=== PATIENT | male | born 1965 | race Two or more races ===

== ENCOUNTER 2018-05-23 16:33 | Emergency (ER) | payer SELFPAY ==
[~2018-05-23] VITALS: Ht 175.3 cm; Wt 72.6 kg
[2018-05-23 17:41] LABS: Basophils # (auto) 0.1 uL; Basophils % (auto) 0.9 % (0.0-2.0); Eosinophils # (auto) 0.2 uL; Eosinophils % (auto) 2.6 % (0.0-7.0); Hematocrit 47.8 % (41.0-53.0); Hemoglobin 16.6 g/dL (13.5-17.5); Lymphocytes # (auto) 2.2 uL; Lymphocytes % (auto) 26.5 % (10.0-50.0); Mean Corpuscular Hemoglobin 33.4 pg (28.0-32.0); Mean Corpuscular Hgb Conc. 34.7 g/dL (32.0-36.0); Mean Corpuscular Volume 96.2 fL (80.0-100.0); Monocytes # (auto) 0.7 uL; Monocytes % (auto) 8.7 % (0.0-12.0); Neutrophils # (auto) 5.2 uL; Neutrophils % (auto) 61.3 % (37.0-80.0); Nucleated Red Blood Cells % 0.2 %; Platelet Count (auto) 219 10^3/uL (140-450); Red Blood Cells 4.97 10^6/uL (4.5-5.90); Red Cell Distribution Width 12.7 % (11.8-14.3); White Blood Cell 8.4 10^3/uL (4.4-10.8)
[2018-05-23 17:51] LABS: Albumin 4.1 g/dL (3.4-5.0); Anion Gap 4 (5-15); Blood Urea Nitrogen 10 mg/dL (7-18); Calcium 8.8 mg/dL (8.5-10.1); Carbon Dioxide 29 mmol/L (21-32); Chloride 107 mmol/L (98-107); Glucose 84 mg/dL (74-106); Magnesium 2.4 mg/dL (1.6-2.6); Sodium 140 mmol/L (136-145)
[2018-05-23 17:56] LABS: Alanine Aminotransferase 44 U/L (16-61); Alkaline Phosphatase 127 U/L (45-117); Aspartate Aminotransferase 17 U/L (15-37); BUN/Creatinine Ratio 10.4; Bilirubin, Total 0.3 mg/dL (0.2-1.0); GFR African American > 60 mL/min; GFR Non-African American > 60 mL/min; Total Protein 7.4 g/dL (6.4-8.2)
[2018-05-23] MEDS ORDERED: MORPHINE SULFATE 10 MG/ML INJ 1ML SDV IV ONE (19:30)
[2018-05-23] MEDS ORDERED: ONDANSETRON HCL 4 MG/2 ML VIAL IV ONE (19:30)
[2018-05-23] MEDS ORDERED: KETOROLAC TROMETH 30 MG/ML 1ML VIAL IV ONE (20:45)
[2018-05-23 21:54] VITALS: BP 124/81
== END 2018-05-23 22:38 | disposition home or self-care (01) ==
LOC: ER 16:36
DX: J01.90 Acute sinusitis, unspecified (principal); I25.2 Old myocardial infarction; Z98.61 Coronary angioplasty status
CPT/HCPCS: 36415; 70450; 80053; 83735; 84484; 85025; 93005; 96374; 96375; 99284; J1885; J2270; J2405

== ENCOUNTER 2019-06-19 11:38 | Inpatient (IN) | payer OTHER ==
[~2019-06-19] VITALS: Ht 175.3 cm; Wt 74.6 kg
[2019-06-19] MEDS ORDERED: ONDANSETRON HCL 4 MG/2 ML VIAL IV ONE (12:15)
[2019-06-19] MEDS ORDERED: MORPHINE SULFATE 4 MG/ML SYR/VIAL IV ONE (12:15)
[2019-06-19] MEDS ORDERED: NITROGLYCERIN 0.4 MG SL TAB SL ONE (12:15)
[2019-06-19] MEDS ORDERED: ASPirin 81 mg TAB PO ONE (12:15)
[2019-06-19 12:16] LABS: Basophils # (auto) 0.1 uL; Basophils % (auto) 1.2 % (0.0-2.0); Eosinophils # (auto) 0.2 uL; Eosinophils % (auto) 3.3 % (0.0-7.0); Hematocrit 46.8 % (41.0-53.0); Hemoglobin 15.9 g/dL (13.5-17.5); Lymphocytes # (auto) 1.3 uL; Lymphocytes % (auto) 25.8 % (10.0-50.0); Mean Corpuscular Hemoglobin 32.3 pg (28.0-32.0); Mean Corpuscular Hgb Conc. 33.9 g/dL (32.0-36.0); Mean Corpuscular Volume 95.4 fL (80.0-100.0); Monocytes # (auto) 0.5 uL; Monocytes % (auto) 10.4 % (0.0-12.0); Neutrophils % (auto) 59.3 % (37.0-80.0); Nucleated Red Blood Cells % 0.1 %; Platelet Count (auto) 212 10^3/uL (140-450); Red Blood Cells 4.91 10^6/uL (4.5-5.90); Red Cell Distribution Width 12.7 % (11.8-14.3); White Blood Cell 5.1 10^3/uL (4.4-10.8)
[2019-06-19 12:39] LABS: Alanine Aminotransferase 21 U/L (16-61); Albumin 3.7 g/dL (3.4-5.0); Anion Gap 5 (5-15); Aspartate Aminotransferase 15 U/L (15-37); Blood Urea Nitrogen 11 mg/dL (7-18); Carbon Dioxide 27 mmol/L (21-32); Chloride 107 mmol/L (98-107); GFR African American 90 mL/min; GFR Non-African American 74 mL/min; Glucose 97 mg/dL (74-106); Potassium 4.2 mmol/L (3.5-5.1); Sodium 139 mmol/L (136-145)
[2019-06-19 12:44] LABS: Alkaline Phosphatase 127 U/L (45-117); Bilirubin, Total 0.3 mg/dL (0.2-1.0); Total Protein 7.2 g/dL (6.4-8.2)
[2019-06-19] MEDS ORDERED: NITROGLYCERIN 0.4 MG SL TAB SL PRN (15:45)
[2019-06-19] MEDS ORDERED: PROMETHAZINE HCL 25 MG/ML 1ML IV PRN (15:45)
[2019-06-19] MEDS ORDERED: ACETAMINOPHEN 500 MG TAB PO PRN (15:45)
[2019-06-19] MEDS ORDERED: NALBUPHINE HCL 10 MG/1ml INJECTION IV PRN (15:45)
[2019-06-19] MEDS ORDERED: MORPHINE SULF INJ 2 MG/ML SYRINGE 1ML IV PRN (15:45)
[2019-06-19] MEDS: SODIUM CHLORIDE 0.9% 1,000 ML IV SCH (15:48)
[2019-06-19 20:10] VITALS: BP 135/73
[2019-06-19] MEDS: MORPHINE SULF INJ 2 MG/ML SYRINGE 1ML IV PRN (21:10)
[2019-06-19] MEDS: ATORVASTATIN 20 MG TAB PO SCH (21:10)
[2019-06-19 22:00] VITALS: BP 135/73
[2019-06-19] MEDS: TEMAZEPAM 15 MG CAP PO PRN (23:30)
[2019-06-20] MEDS ORDERED: INFLUENZA QUAD 2019-2020 0.5ml SYRG IM ONE (02:15)
[2019-06-20] MEDS: SODIUM CHLORIDE 0.9% 1,000 ML IV SCH ×2 (04:40→17:28)
[2019-06-20 05:05] VITALS: BP 118/60
[2019-06-20] MEDS: MORPHINE SULF INJ 2 MG/ML SYRINGE 1ML IV PRN ×5 (05:08→23:31)
[2019-06-20 05:59] LABS: Cholesterol 168 mg/dL (< 200); HDL Cholesterol 35 mg/dL (40-59); LDL Cholesterol 113 mg/dL (< 100); Triglycerides 130 mg/dL (< 150)
[2019-06-20 09:00] VITALS: BP 124/72
[2019-06-20] MEDS: ENOXAPARIN SOD 40 MG/0.4 ML SYRINGE SC SCH (09:01)
[2019-06-20] MEDS: ASPirin 81 mg TAB PO SCH (09:02)
[2019-06-20 17:06] VITALS: BP 112/66
[2019-06-20] MEDS: ATORVASTATIN 20 MG TAB PO SCH (21:24)
[2019-06-20 21:46] VITALS: BP 116/78
[2019-06-21] VITALS (7 sets, daily range): BP systolic 121–134; BP diastolic 68–79
[2019-06-21] MEDS: SODIUM CHLORIDE 0.9% 1,000 ML IV SCH (01:25)
[2019-06-21] MEDS: MORPHINE SULF INJ 2 MG/ML SYRINGE 1ML IV PRN ×2 (04:05→11:52)
[2019-06-21] MEDS: traMADol HCL 50 MG TAB PO PRN ×3 (08:21→22:18)
[2019-06-21] MEDS ORDERED: ADENOSINE 62 MG in GIVE UN-DILUTED 0 ML IV STA (08:36)
[2019-06-21] MEDS: ENOXAPARIN SOD 40 MG/0.4 ML SYRINGE SC SCH (11:52)
[2019-06-21] MEDS: ASPirin 81 mg TAB PO SCH (11:52)
[2019-06-21] MEDS ORDERED: predniSONE 20 MG TAB PO ONE (13:15)
[2019-06-21] MEDS ORDERED: ALBUTEROL SULF 2.5 MG/0.5ML(0.5%) NEB SOLN NEB SCH (13:15)
[2019-06-21] MEDS: ALBUTEROL SULF 2.5 MG/0.5ML(0.5%) NEB SOLN NEB SCH (18:56)
[2019-06-21] MEDS: IPRATROPIUM BROM 0.5 MG/2.5ML INH SOL NEB SCH (18:56)
[2019-06-21] MEDS: ATORVASTATIN 20 MG TAB PO SCH (22:18)
[2019-06-22 05:00] VITALS: BP 134/81
[2019-06-22] MEDS: traMADol HCL 50 MG TAB PO PRN ×4 (05:01→23:29)
[2019-06-22] MEDS: ALBUTEROL SULF 2.5 MG/0.5ML(0.5%) NEB SOLN NEB SCH ×3 (06:45→20:11)
[2019-06-22] MEDS: IPRATROPIUM BROM 0.5 MG/2.5ML INH SOL NEB SCH ×3 (06:45→20:11)
[2019-06-22 08:38] VITALS: BP 119/60
[2019-06-22] MEDS: predniSONE 20 MG TAB PO SCH (10:32)
[2019-06-22] MEDS: ASPirin 81 mg TAB PO SCH (10:32)
[2019-06-22] MEDS: ENOXAPARIN SOD 40 MG/0.4 ML SYRINGE SC SCH (10:32)
[2019-06-22 13:00] VITALS: BP 115/69
[2019-06-22 17:01] VITALS: BP 123/73
[2019-06-22] MEDS: LACTULOSE 20Gm/30ML SOLN PO PRN (21:08)
[2019-06-22] MEDS: ATORVASTATIN 20 MG TAB PO SCH (21:08)
[2019-06-22] MEDS: TEMAZEPAM 15 MG CAP PO PRN ×2 (21:09→23:30)
[2019-06-22 21:27] LABS: Urine Bacteria NONE SEEN /hpf (None Seen); Urine Blood Negative /uL (Negative); Urine Specific Gravity 1.019 (1.001-1.035); Urine WBC 1 /hpf (0 - 3)
[2019-06-22 21:28] VITALS: BP 103/62
[2019-06-22 22:00] VITALS: BP 125/76
[2019-06-22] MEDS: SODIUM CHLORIDE 0.9% 1,000 ML IV SCH (23:56)
[2019-06-23 05:00] VITALS: BP 124/68
[2019-06-23] MEDS: LACTULOSE 20Gm/30ML SOLN PO PRN (05:23)
[2019-06-23] MEDS: traMADol HCL 50 MG TAB PO PRN ×2 (05:31→13:25)
[2019-06-23 07:01] LABS: Basophils # (auto) 0.1 uL; Basophils % (auto) 0.8 % (0.0-2.0); Eosinophils # (auto) 0.1 uL; Eosinophils % (auto) 1.4 % (0.0-7.0); Hematocrit 44.1 % (41.0-53.0); Hemoglobin 15.2 g/dL (13.5-17.5); Lymphocytes # (auto) 1.7 uL; Lymphocytes % (auto) 26.7 % (10.0-50.0); Mean Corpuscular Hemoglobin 32.9 pg (28.0-32.0); Mean Corpuscular Hgb Conc. 34.5 g/dL (32.0-36.0); Mean Corpuscular Volume 95.2 fL (80.0-100.0); Monocytes # (auto) 0.6 uL; Monocytes % (auto) 9.4 % (0.0-12.0); Neutrophils # (auto) 3.9 uL; Neutrophils % (auto) 61.7 % (37.0-80.0); Nucleated Red Blood Cells % 0.1 %; Platelet Count (auto) 191 10^3/uL (140-450); Red Blood Cells 4.63 10^6/uL (4.5-5.90); Red Cell Distribution Width 12.6 % (11.8-14.3); White Blood Cell 6.3 10^3/uL (4.4-10.8)
[2019-06-23] MEDS: IPRATROPIUM BROM 0.5 MG/2.5ML INH SOL NEB SCH ×2 (07:06→11:54)
[2019-06-23] MEDS: ALBUTEROL SULF 2.5 MG/0.5ML(0.5%) NEB SOLN NEB SCH ×2 (07:06→11:54)
[2019-06-23 07:16] LABS: Calcium 9.1 mg/dL (8.5-10.1); Potassium 4.1 mmol/L (3.5-5.1)
[2019-06-23 07:18] LABS: BUN/Creatinine Ratio 12.5
[2019-06-23 07:20] LABS: INR 0.95 (0.9-1.15); Partial Thromboplastin Time 26.4 sec (23.64-32.05)
[2019-06-23 09:00] VITALS: BP 133/70
[2019-06-23] MEDS ORDERED: LIDOCAINE 2%HCL (LOCAL ANESTH.) INJ 20ML MDV ONE (09:55)
[2019-06-23] MEDS ORDERED: IODIXANOL 320MG/ML 100ML BTL IV ONE (09:55)
[2019-06-23] MEDS: ENOXAPARIN SOD 40 MG/0.4 ML SYRINGE SC SCH (10:00)
[2019-06-23] MEDS: predniSONE 20 MG TAB PO SCH (10:00)
[2019-06-23] MEDS: ASPirin 81 mg TAB PO SCH (10:00)
[2019-06-23] MEDS ORDERED: MIDAZOLAM HCL 1MG/1ML-2 ML VIAL ONE (10:08)
[2019-06-23] MEDS ORDERED: fentaNYL CITRATE 100 MCG/2 ML VL ONE (10:08)
[2019-06-23] MEDS ORDERED: ANGIOMAX 250 MG VIAL IV ONE (10:08)
[2019-06-23] MEDS ORDERED: SODIUM CHL 0.9% 0 ML ONE (10:08)
[2019-06-23] MEDS ORDERED: IOHEXOL 350 MG/ML 100ML IJ ONE (10:08)
[2019-06-23] MEDS ORDERED: HEPARIN SODIUM (PORCINE) 5000 UNITS/ML 1ML VIAL ONE (10:13)
[2019-06-23] MEDS ORDERED: VERAPAMIL 2.5MG/ML INJ 2ML VIAL IV ONE (10:13)
[2019-06-23] MEDS ORDERED: SODIUM CHL 0.9% 500 ML IV ONE (11:00)
[2019-06-23] MEDS ORDERED: ASPI81CH43 PO (12:21)
[2019-06-23] MEDS ORDERED: ALB5IS NEB (12:21)
[2019-06-23] MEDS ORDERED: ATOR20TA50 PO (12:21)
[2019-06-23 13:00] VITALS: BP 105/69
[2019-06-23] MEDS: SODIUM CHLORIDE 0.9% 1,000 ML IV SCH (13:21)
[2019-06-23 17:00] VITALS: BP 111/63
[2019-06-23 18:12] VITALS: BP 105/69
== END 2019-06-23 18:50 | disposition home or self-care (01) | DRG 287 ==
LOC: ER 11:38 → TELE 11:39 → TELE-WESTW 20:10
PROVIDERS: ADMIT Internal Medicine; ATTEND Internal Medicine Nephrology
PROC: 4A023N7 Measurement of Cardiac Sampling and Pressure, Left Heart, Percutaneous Approach (ICD-10-PCS; principal; 2019-06-23)
PROC: B2111ZZ Fluoroscopy of Multiple Coronary Arteries using Low Osmolar Contrast (ICD-10-PCS; 2019-06-23)
PROC: B2151ZZ Fluoroscopy of Left Heart using Low Osmolar Contrast (ICD-10-PCS; 2019-06-23)
DX: R07.89 Other chest pain (principal); I24.9 Acute ischemic heart disease, unspecified; F41.9 Anxiety disorder, unspecified; E78.5 Hyperlipidemia, unspecified; R00.1 Bradycardia, unspecified; F17.210 Nicotine dependence, cigarettes, uncomplicated; Z82.49 Family history of ischemic heart disease and other diseases of the circulatory system; Z83.3 Family history of diabetes mellitus
CPT/HCPCS: 36415; 71045; 71250; 78452; 80048; 80053; 80061; 81001; 82550; 84443; 84484; 85025; 85379; 85610; 85652; 85730; 86141; 86850; 86900; 86901; 93005; 93017; 93306; 94640; 96361; 96374; 96375; 96376; 99152; G0378; J0153; J2250; J2405; Q9967

== ENCOUNTER 2020-02-15 12:15 | Emergency (ER) | payer BC ==
[~2020-02-15] VITALS: Ht 175.3 cm; Wt 72.6 kg
[~2020-02-15 12:15] MED LIST: ALB5IS NEB; ASPI81CH43 PO; ATOR20TA50 PO
[2020-02-15 12:37] VITALS: BP 116/86
[2020-02-15] MEDS ORDERED: KETOROLAC TROMETH 60MG/2ML VIAL IM ONE (14:45)
== END 2020-02-15 14:44 | disposition home or self-care (01) ==
LOC: ER 12:15
DX: R51.9 Headache, unspecified (principal); R42 Dizziness and giddiness; R20.0 Anesthesia of skin; F17.210 Nicotine dependence, cigarettes, uncomplicated; I25.2 Old myocardial infarction; Z98.61 Coronary angioplasty status
CPT/HCPCS: 70450; 99284; J7030

== ENCOUNTER 2020-06-02 18:29 | Emergency (ER) | payer BC ==
[~2020-06-02] VITALS: Ht 175.3 cm; Wt 77.1 kg
[2020-06-02 18:32] VITALS: BP 139/85
[2020-06-02 19:41] LABS: Basophils # (auto) 0.1 10 ^3/uL (0-0.2); Eosinophils # (auto) 0.3 10 ^3/uL (0-0.8); Eosinophils % (auto) 5.2 % (0.0-7.0); Monocytes # (auto) 0.7 10 ^3/uL (0-1.3); White Blood Cell 5.2 10^3/uL (4.4-10.8)
[2020-06-02 19:43] LABS: Basophils % (auto) 1.2 % (0.0-2.0); Hematocrit 43.7 % (41.0-53.0); Lymphocytes # (auto) 1.6 10 ^3/uL (0.4-5.4); Lymphocytes % (auto) 31.3 % (10.0-50.0); Mean Corpuscular Hemoglobin 33.1 pg (28.0-32.0); Mean Corpuscular Hgb Conc. 34.4 g/dL (32.0-36.0); Mean Corpuscular Volume 96.1 fL (80.0-100.0); Monocytes % (auto) 13.7 % (0.0-12.0); Neutrophils # (auto) 2.5 10 ^3/uL (1.6-8.6); Neutrophils % (auto) 48.6 % (37.0-80.0); Nucleated Red Blood Cells % 0.2 %; Platelet Count (auto) 188 10^3/uL (140-450); Red Blood Cells 4.55 10^6/uL (4.5-5.90); Red Cell Distribution Width 12.9 % (11.8-14.3)
[2020-06-02 19:56] LABS: Albumin 3.7 g/dL (3.4-5.0); Calcium 8.3 mg/dL (8.5-10.1); Potassium 3.8 mmol/L (3.5-5.1)
[2020-06-02 19:59] LABS: BUN/Creatinine Ratio 13.8; Bilirubin, Total 0.3 mg/dL (0.2-1.0); Total Protein 6.7 g/dL (6.4-8.2)
== END 2020-06-02 21:04 | disposition home or self-care (01) ==
LOC: ER 18:29
DX: R06.02 Shortness of breath (principal); F17.200 Nicotine dependence, unspecified, uncomplicated; I25.2 Old myocardial infarction; Z20.822 Contact with and (suspected) exposure to COVID-19
CPT/HCPCS: 36415; 71045; 71250; 80053; 83880; 84484; 85025; 87426; 93005; 99285; C9803; U0003

== ENCOUNTER 2020-06-12 18:42 | Emergency (ER) | payer BC ==
[~2020-06-12] VITALS: Ht 175.3 cm; Wt 77.1 kg
[2020-06-12 18:43] VITALS: BP 146/77
[2020-06-12 19:16] LABS: Urine WBC None Seen /hpf (0 - 3)
[2020-06-12 19:28] LABS: Basophils # (auto) 0 10 ^3/uL (0-0.2); Basophils % (auto) 0.2 % (0.0-2.0); Eosinophils # (auto) 0.2 10 ^3/uL (0-0.8); Eosinophils % (auto) 4.4 % (0.0-7.0); Hematocrit 41.5 % (41.0-53.0); Hemoglobin 14.7 g/dL (13.5-17.5); Lymphocytes # (auto) 1.7 10 ^3/uL (0.4-5.4); Lymphocytes % (auto) 33.2 % (10.0-50.0); Mean Corpuscular Hemoglobin 33.7 pg (28.0-32.0); Mean Corpuscular Hgb Conc. 35.4 g/dL (32.0-36.0); Mean Corpuscular Volume 95.3 fL (80.0-100.0); Monocytes # (auto) 0.6 10 ^3/uL (0-1.3); Neutrophils # (auto) 2.6 10 ^3/uL (1.6-8.6); Neutrophils % (auto) 50.2 % (37.0-80.0); Nucleated Red Blood Cells % 0.1 %; Red Blood Cells 4.35 10^6/uL (4.5-5.90); Red Cell Distribution Width 12.7 % (11.8-14.3); White Blood Cell 5.3 10^3/uL (4.4-10.8)
[2020-06-12] MEDS ORDERED: KETOROLAC TROMETH 30 MG/ML 1ML VIAL IV ONE (19:30)
[2020-06-12] MEDS ORDERED: ACETAMINOPHEN 500 MG TAB PO ONE (19:30)
[2020-06-12 19:33] LABS: Urine Bacteria NONE SEEN /hpf (None Seen); Urine Blood Negative /uL (Negative); Urine Specific Gravity 1.019 (1.001-1.035)
[2020-06-12 19:34] LABS: INR 0.95 (0.9-1.15)
[2020-06-12 19:40] LABS: Alcohol, Urine < 3.0 mg/dL (0-10); Amphetamine Screen, Urine NEGATIVE (NEGATIVE); Barbiturate Scree,Urine NEGATIVE (NEGATIVE); Benzodiazephine Screen, Urine NEGATIVE (NEGATIVE); Cannabinoid Screen, Urine NEGATIVE (NEGATIVE); Cocaine Screen, Urine NEGATIVE (NEGATIVE); Opiate Scree,Urine NEGATIVE (NEGATIVE); Phencyclidine Screen, Urine NEGATIVE (NEGATIVE)
[2020-06-12 20:06] LABS: Alanine Aminotransferase 25 U/L (16-61); Albumin 3.4 g/dL (3.4-5.0); Anion Gap 6 (5-15); Blood Urea Nitrogen 14 mg/dL (7-18); Calcium 7.9 mg/dL (8.5-10.1); Carbon Dioxide 25 mmol/L (21-32); Chloride 109 mmol/L (98-107); Glucose 169 mg/dL (74-106); Potassium 4.4 mmol/L (3.5-5.1); Sodium 140 mmol/L (136-145)
[2020-06-12 20:12] LABS: Alkaline Phosphatase 122 U/L (45-117); Aspartate Aminotransferase 17 U/L (15-37); BUN/Creatinine Ratio 15.7; Bilirubin, Total 0.2 mg/dL (0.2-1.0); GFR African American 115 mL/min; GFR Non-African American 95 mL/min
[2020-06-12] MEDS ORDERED: MORPHINE SULFATE INJECTION 2 MG/ML SYRG IV ONE (20:45)
[2020-06-12] MEDS ORDERED: ONDANSETRON HCL 4 MG/2 ML VIAL IV ONE (20:45)
[2020-11-03] MEDS ORDERED: RANO500T2 PO (12:28)
== END 2020-06-12 21:51 | disposition home or self-care (01) ==
LOC: ER 18:42
DX: R07.89 Other chest pain (principal); M48.10 Ankylosing hyperostosis [Forestier], site unspecified; Z87.891 Personal history of nicotine dependence; Z20.822 Contact with and (suspected) exposure to COVID-19
CPT/HCPCS: 36415; 71045; 80053; 80307; 81001; 83605; 83735; 83880; 84484; 85025; 85610; 87426; 93005; 96374; 96375; 99285; J1885; J2270; J2405

== ENCOUNTER 2020-07-18 14:10 | Emergency (ER) | payer BC ==
[~2020-07-18] VITALS: Ht 175.3 cm; Wt 74.8 kg
[2020-07-18] MEDS ORDERED: traMADol HCL 50 MG TAB PO ONE (14:30)
[2020-07-18 15:10] LABS: Basophils # (auto) 0.1 10 ^3/uL (0-0.2); Basophils % (auto) 1.1 % (0.0-2.0); Eosinophils # (auto) 0.2 10 ^3/uL (0-0.8); Eosinophils % (auto) 2.7 % (0.0-7.0); Hemoglobin 15.8 g/dL (13.5-17.5); Lymphocytes # (auto) 1.2 10 ^3/uL (0.4-5.4); Lymphocytes % (auto) 19.6 % (10.0-50.0); Mean Corpuscular Hemoglobin 32.8 pg (28.0-32.0); Mean Corpuscular Hgb Conc. 34.4 g/dL (32.0-36.0); Mean Corpuscular Volume 95.2 fL (80.0-100.0); Monocytes # (auto) 0.5 10 ^3/uL (0-1.3); Monocytes % (auto) 7.7 % (0.0-12.0); Neutrophils # (auto) 4.2 10 ^3/uL (1.6-8.6); Neutrophils % (auto) 68.9 % (37.0-80.0); Nucleated Red Blood Cells % 0.1 %; Red Blood Cells 4.83 10^6/uL (4.5-5.90); Red Cell Distribution Width 12.7 % (11.8-14.3); White Blood Cell 6.1 10^3/uL (4.4-10.8)
[2020-07-18 15:31] LABS: Albumin 3.8 g/dL (3.4-5.0); Anion Gap 8 (5-15); Blood Urea Nitrogen 11 mg/dL (7-18); Calcium 8.9 mg/dL (8.5-10.1); Carbon Dioxide 25 mmol/L (21-32); Chloride 107 mmol/L (98-107); Glucose 135 mg/dL (74-106); Potassium 4.2 mmol/L (3.5-5.1); Sodium 140 mmol/L (136-145)
[2020-07-18 15:32] LABS: Alanine Aminotransferase 22 U/L (16-61); Aspartate Aminotransferase 15 U/L (15-37); BUN/Creatinine Ratio 12.9; GFR African American 121 mL/min; GFR Non-African American 100 mL/min
[2020-07-18 15:37] LABS: Alkaline Phosphatase 124 U/L (45-117); Bilirubin, Total 0.3 mg/dL (0.2-1.0); Total Protein 7.1 g/dL (6.4-8.2)
[2020-07-18 16:00] VITALS: BP 148/92
[2020-11-03] MEDS ORDERED: RANO500T2 PO (12:28)
== END 2020-07-18 17:01 | disposition home or self-care (01) ==
LOC: ER 14:10
DX: R07.89 Other chest pain (principal); Z79.82 Long term (current) use of aspirin; Z87.891 Personal history of nicotine dependence
CPT/HCPCS: 36415; 71046; 80053; 84484; 85025; 93005

== ENCOUNTER 2020-08-22 21:28 | Emergency (ER) | payer BC ==
[~2020-08-22] VITALS: Ht 175.3 cm; Wt 76.2 kg
[2020-08-22 22:39] LABS: Basophils # (auto) 0.1 10 ^3/uL (0-0.2); Eosinophils # (auto) 0.2 10 ^3/uL (0-0.8); Eosinophils % (auto) 2.5 % (0.0-7.0); Hematocrit 45.3 % (41.0-53.0); Hemoglobin 15.8 g/dL (13.5-17.5); Lymphocytes # (auto) 2.2 10 ^3/uL (0.4-5.4); Lymphocytes % (auto) 29.4 % (10.0-50.0); Mean Corpuscular Hemoglobin 33.4 pg (28.0-32.0); Mean Corpuscular Hgb Conc. 34.9 g/dL (32.0-36.0); Mean Corpuscular Volume 95.8 fL (80.0-100.0); Monocytes # (auto) 0.8 10 ^3/uL (0-1.3); Monocytes % (auto) 10.2 % (0.0-12.0); Neutrophils # (auto) 4.3 10 ^3/uL (1.6-8.6); Neutrophils % (auto) 56.9 % (37.0-80.0); Nucleated Red Blood Cells % 0.1 %; Platelet Count (auto) 212 10^3/uL (140-450); Red Blood Cells 4.73 10^6/uL (4.5-5.90); Red Cell Distribution Width 13.1 % (11.8-14.3); White Blood Cell 7.5 10^3/uL (4.4-10.8)
[2020-08-22 22:55] LABS: Chloride 107 mmol/L (98-107); INR 0.92 (0.9-1.15); Partial Thromboplastin Time 28.2 sec (23.0-31.2); Potassium 3.8 mmol/L (3.5-5.1); Sodium 138 mmol/L (136-145)
[2020-08-22 22:56] LABS: Albumin 3.8 g/dL (3.4-5.0); Anion Gap 10 (5-15); Blood Urea Nitrogen 15 mg/dL (7-18); Calcium 8.5 mg/dL (8.5-10.1); Carbon Dioxide 21 mmol/L (21-32); Glucose 91 mg/dL (74-106)
[2020-08-22 22:59] LABS: Alanine Aminotransferase 33 U/L (16-61); Aspartate Aminotransferase 17 U/L (15-37); GFR African American 116 mL/min; GFR Non-African American 96 mL/min
[2020-08-22 23:03] LABS: Alkaline Phosphatase 133 U/L (45-117); Bilirubin, Total 0.3 mg/dL (0.2-1.0)
[2020-08-22 23:41] LABS: Urine Bacteria NONE SEEN /hpf (None Seen); Urine Blood Negative /uL (Negative); Urine Mucus FEW (None Seen); Urine Specific Gravity 1.009 (1.001-1.035); Urine WBC <1 /hpf (0 - 3)
[2020-08-22] MEDS ORDERED: ACETAMINOPHEN 325 MG TAB PO ONE (23:45)
[2020-08-23] MEDS ORDERED: IBUPROFEN 600 MG TAB PO ONE (01:30)
[2020-08-23 09:05] VITALS: BP 107/61
== END 2020-08-23 06:10 | disposition home or self-care (01) ==
LOC: ER 21:38
DX: R07.89 Other chest pain (principal); Z87.891 Personal history of nicotine dependence; Z79.82 Long term (current) use of aspirin
CPT/HCPCS: 36415; 71045; 80053; 81001; 83880; 84484; 85025; 85610; 85730; 93005

== ENCOUNTER 2020-09-21 11:24 | Emergency (ER) | payer BC ==
[~2020-09-21] VITALS: Ht 175.3 cm; Wt 76.2 kg
[2020-09-21 12:21] VITALS: BP 140/92
[2020-09-21] MEDS ORDERED: IBUPROFEN 800 MG TAB PO ONE (13:15)
[2020-09-21 13:42] LABS: Basophils # (auto) 0.1 10 ^3/uL (0-0.2); Basophils % (auto) 1.1 % (0.0-2.0); Eosinophils # (auto) 0.1 10 ^3/uL (0-0.8); Eosinophils % (auto) 1.1 % (0.0-7.0); Hematocrit 46.6 % (41.0-53.0); Hemoglobin 16.1 g/dL (13.5-17.5); Lymphocytes # (auto) 1.3 10 ^3/uL (0.4-5.4); Lymphocytes % (auto) 23.2 % (10.0-50.0); Mean Corpuscular Hemoglobin 33.3 pg (28.0-32.0); Mean Corpuscular Hgb Conc. 34.6 g/dL (32.0-36.0); Mean Corpuscular Volume 96.2 fL (80.0-100.0); Monocytes # (auto) 0.6 10 ^3/uL (0-1.3); Monocytes % (auto) 10.5 % (0.0-12.0); Neutrophils # (auto) 3.7 10 ^3/uL (1.6-8.6); Neutrophils % (auto) 64.1 % (37.0-80.0); Nucleated Red Blood Cells % 0.1 %; Platelet Count (auto) 193 10^3/uL (140-450); Red Blood Cells 4.85 10^6/uL (4.5-5.90); Red Cell Distribution Width 13.2 % (11.8-14.3); White Blood Cell 5.8 10^3/uL (4.4-10.8)
[2020-09-21 14:08] LABS: Calcium 9.3 mg/dL (8.5-10.1); Potassium 4.4 mmol/L (3.5-5.1)
== END 2020-09-21 14:32 | disposition home or self-care (01) ==
LOC: ER 11:24
DX: S80.11XA Contusion of right lower leg, initial encounter (principal); M67.48 Ganglion, other site; Z87.891 Personal history of nicotine dependence; Z79.82 Long term (current) use of aspirin; X58.XXXA Exposure to other specified factors, initial encounter; Y93.89 Activity, other specified; Y92.89 Other specified places as the place of occurrence of the external cause; Y99.8 Other external cause status
CPT/HCPCS: 36415; 80048; 85025

== ENCOUNTER 2020-11-07 07:56 | Day surgery (SDC) | payer BC ==
[~2020-11-07] VITALS: Ht 175.3 cm; Wt 84.4 kg
[~2020-11-07 07:56] MED LIST changes: -ALB5IS NEB; -ASPI81CH43 PO; -ATOR20TA50 PO; +IOHEXOL 350 MG/ML 100ML IJ ONE; +LIDOCAINE 2%HCL (LOCAL ANESTH.) INJ 20ML MDV ONE; +RANO500T2 PO
[2020-11-07] MEDS ORDERED: VERAPAMIL 2.5MG/ML INJ 2ML VIAL IV ONE (08:48)
[2020-11-07] MEDS ORDERED: HEPARIN SODIUM (PORCINE) 5000 UNITS/ML 1ML VIAL ONE (08:48)
[2020-11-07] MEDS ORDERED: ANGIOMAX 250 MG VIAL IV ONE (08:48)
[2020-11-07] MEDS ORDERED: fentaNYL CITRATE 100 MCG/2 ML VL ONE (08:48)
[2020-11-07] MEDS ORDERED: SODIUM CHL 0.9% 0 ML ONE (08:49)
[2020-11-07] MEDS ORDERED: MIDAZOLAM HCL 1MG/1ML-2 ML VIAL ONE (08:49)
[2020-11-07] MEDS ORDERED: IODIXANOL 320MG/ML 100ML BTL IV ONE ×2 (09:00→09:05)
[2020-11-07] MEDS ORDERED: ONDANSETRON HCL 4 MG/2 ML VIAL IV PRN (09:30)
[2020-11-07] MEDS ORDERED: HYDROcodone-ACET 5/325MG TAB PO PRN (09:30)
[2020-11-07] MEDS ORDERED: ACETAMINOPHEN 500 MG TAB PO PRN (09:30)
== END 2020-11-07 11:45 | disposition home or self-care (01) ==
LOC: CATH 07:56
PROVIDERS: ATTEND Internal Medicine
DX: F17.210 Nicotine dependence, cigarettes, uncomplicated (principal); I25.118 Atherosclerotic heart disease of native coronary artery with other forms of angina pectoris; I25.2 Old myocardial infarction; Z20.822 Contact with and (suspected) exposure to COVID-19; Z98.890 Other specified postprocedural states; Z79.899 Other long term (current) drug therapy
CPT/HCPCS: 93458; C1887; C1894; J1644; J2250; J3010; J7030; Q9967; U0003; 99152

== ENCOUNTER 2023-08-10 03:47 | Emergency (ER) | payer BC, MEDICAID ==
[~2023-08-10] VITALS: Ht 175.3 cm; Wt 80.3 kg
[~2023-08-10 03:47] MED LIST changes: -IOHEXOL 350 MG/ML 100ML IJ ONE; -LIDOCAINE 2%HCL (LOCAL ANESTH.) INJ 20ML MDV ONE
[2023-08-10 04:15] LABS: Basophils # (auto) 0.1 10 ^3/uL (0-0.2); Basophils % (auto) 0.7 % (0.0-2.0); Eosinophils # (auto) 0.3 10 ^3/uL (0-0.8); Eosinophils % (auto) 3.4 % (0.0-7.0); Hematocrit 46.1 % (41.0-53.0); Hemoglobin 15.6 g/dL (13.5-17.5); Lymphocytes # (auto) 0.9 10 ^3/uL (0.4-5.4); Lymphocytes % (auto) 10.4 % (10.0-50.0); Mean Corpuscular Hemoglobin 32.8 pg (28.0-32.0); Mean Corpuscular Hgb Conc. 33.9 g/dL (32.0-36.0); Mean Corpuscular Volume 96.7 fL (80.0-100.0); Monocytes # (auto) 0.8 10 ^3/uL (0-1.3); Monocytes % (auto) 9.4 % (0.0-12.0); Neutrophils # (auto) 6.6 10 ^3/uL (1.6-8.6); Neutrophils % (auto) 76.1 % (37.0-80.0); Red Blood Cells 4.77 10^6/uL (4.5-5.90); Red Cell Distribution Width 13.1 % (11.8-14.3); White Blood Cell 8.6 10^3/uL (4.4-10.8)
[2023-08-10 04:29] LABS: Alanine Aminotransferase 29 U/L (7-40); Albumin 4.5 g/dL (3.2-4.8); Alkaline Phosphatase 112 U/L (46-116); Anion Gap 3 (5-15); Aspartate Aminotransferase 16 U/L (13-40); BUN/Creatinine Ratio 7.4 (10.0-20.0); Blood Urea Nitrogen 7 mg/dL (9-23); Calcium 9.6 mg/dL (8.7-10.4); Carbon Dioxide 28 mmol/L (20-30); Chloride 108 mmol/L (98-107); Glucose 112 mg/dL (74-106); Magnesium 1.9 mg/dL (1.6-2.6); Potassium 4.5 mmol/L (3.5-5.1); Sodium 139 mmol/L (136-145)
[2023-08-10 04:30] LABS: Bilirubin, Total 0.3 mg/dL (0.2-1.0); Total Protein 6.7 g/dL (5.7-8.2)
[2023-08-10 04:39] LABS: INR 0.93 (0.9-1.15); Partial Thromboplastin Time 28.1 SEC (24.5-34.5); Prothrombin Time 9.8 sec (9.3-11.8)
[2023-08-10 05:35] VITALS: BP 136/82; PULSE 67; RESP 18; TEMP 98.7; O2SAT 95
== END 2023-08-10 05:45 | disposition home or self-care (01) ==
LOC: ER 03:47
DX: R07.89 Other chest pain (principal); R51.9 Headache, unspecified; I10 Essential (primary) hypertension; Z86.73 Personal history of transient ischemic attack (TIA), and cerebral infarction without residual deficits; Z87.891 Personal history of nicotine dependence
CPT/HCPCS: 36415; 71045; 80053; 83735; 83880; 84484; 85025; 85610; 85730; 93005

== ENCOUNTER 2023-09-15 08:18 | Inpatient (IN) | payer MEDICAID ==
[~2023-09-15] VITALS: Ht 175.3 cm; Wt 81.3 kg
[2023-09-15 00:32] VITALS: PULSE 74; RESP 18; O2SAT 97
[2023-09-15 08:41] LABS: Basophils # (auto) 0.1 10 ^3/uL (0-0.2); Basophils % (auto) 0.7 % (0.0-2.0); Eosinophils # (auto) 0.3 10 ^3/uL (0-0.8); Eosinophils % (auto) 3.5 % (0.0-7.0); Hematocrit 45.2 % (41.0-53.0); Hemoglobin 15.7 g/dL (13.5-17.5); Lymphocytes # (auto) 1.4 10 ^3/uL (0.4-5.4); Lymphocytes % (auto) 16.2 % (10.0-50.0); Mean Corpuscular Hemoglobin 33.4 pg (28.0-32.0); Mean Corpuscular Hgb Conc. 34.7 g/dL (32.0-36.0); Monocytes # (auto) 0.7 10 ^3/uL (0-1.3); Monocytes % (auto) 8.3 % (0.0-12.0); Neutrophils # (auto) 6.1 10 ^3/uL (1.6-8.6); Neutrophils % (auto) 71.3 % (37.0-80.0); Red Blood Cells 4.71 10^6/uL (4.5-5.90); Red Cell Distribution Width 12.8 % (11.8-14.3); White Blood Cell 8.6 10^3/uL (4.4-10.8)
[2023-09-15 08:51] LABS: Chloride 107 mmol/L (98-107); Potassium 4.1 mmol/L (3.5-5.1); Sodium 138 mmol/L (136-145)
[2023-09-15 08:52] LABS: Anion Gap 5 (5-15); Carbon Dioxide 26 mmol/L (20-30)
[2023-09-15 08:53] LABS: Calcium 9.9 mg/dL (8.5-10.1)
[2023-09-15 08:57] LABS: BUN/Creatinine Ratio 8.8 (10.0-20.0); Blood Urea Nitrogen 8 mg/dL (9-23); Glucose 179 mg/dL (74-106)
[2023-09-15] MEDS: NITROGLYCERIN 0.4 MG SL TAB SL ONE (09:30)
[2023-09-15] MEDS: ASPirin 325 MG TAB PO ONE (09:30)
[2023-09-15] MEDS: ALBUTEROL SULF 2.5 MG/0.5ML(0.5%) NEB SOLN NEB ONE (09:46)
[2023-09-15] MEDS: IPRATROPIUM BROM 0.5 MG/2.5ML INH SOL NEB ONE (09:46)
[2023-09-15] MEDS: SODIUM CHLORIDE 0.9% 1,000 ML IV SCH (10:45)
[2023-09-15] MEDS ORDERED: NITROGLYCERIN 0.4 MG SL TAB SL PRN (10:45)
[2023-09-15] MEDS: PANTOPRAZOLE 40 MG/10 ML VIAL INJ IV ONE (10:45)
[2023-09-15 11:04] VITALS: BP 148/85; PULSE 82; RESP 20; TEMP 100.4; O2SAT 99
[2023-09-15 11:07] LABS: INR 0.95 (0.9-1.15); Prothrombin Time 10.1 sec (9.3-11.8)
[2023-09-15] MEDS: methylPREDNISolone SOD SUCC 125 MG/2 ML VL IV ONE (11:19)
[2023-09-15] MEDS: cefTRIAXone 1GM/50ML D5W 50 ML IV ONE (11:19)
[2023-09-15] MEDS: AZITHROMYCIN 250 MG TAB PO ONE (11:28)
[2023-09-15 12:40] LABS: Magnesium 1.9 mg/dL (1.6-2.6)
[2023-09-15] MEDS: IPRATROPIUM BROM 0.5 MG/2.5ML INH SOL NEB SCH (15:13)
[2023-09-15] MEDS: ALBUTEROL SULF 2.5 MG/0.5ML(0.5%) NEB SOLN NEB SCH (15:13)
[2023-09-15] MEDS: methylPREDNISolone SOD SUCC 125 MG/2 ML VL IV SCH (16:09)
[2023-09-15] MEDS: MORPHINE SULFATE 4 MG/ML SYR/VIAL IV PRN (16:33)
[2023-09-15 20:15] VITALS: RESP 16; O2SAT 97
[2023-09-15] MEDS: ONDANSETRON HCL 4 MG/2 ML VIAL IV PRN (20:30)
[2023-09-15 22:45] VITALS: BP 146/79; PULSE 64; RESP 16; TEMP 97.5; O2SAT 97
[2023-09-15] MEDS: ENOXAPARIN SOD 80 MG/0.8ML SYRINGE SC SCH (23:22)
[2023-09-15] MEDS: ATORVASTATIN 20 MG TAB PO SCH (23:23)
[2023-09-15] MEDS: METOPROLOL TARTRATE 25 MG TAB PO SCH (23:26)
[2023-09-16] VITALS (18 sets, daily range): BP systolic 111–146; BP diastolic 59–79; PULSE 62–88; RESP 16–96; TEMP 97.3–98; O2SAT 93–100
[2023-09-16] MEDS ORDERED: ATOR40TA52 PO (00:10)
[2023-09-16] MEDS ORDERED: LISI-275 PO (00:10)
[2023-09-16] MEDS ORDERED: ASPI81CH59 PO (00:10)
[2023-09-16] MEDS: LORazepam 0.5 MG TAB PO ONE (00:21)
[2023-09-16 06:45] LABS: Basophils # (auto) 0 10 ^3/uL (0-0.2); Basophils % (auto) 0.2 % (0.0-2.0); Eosinophils # (auto) 0 10 ^3/uL (0-0.8); Hematocrit 39.6 % (41.0-53.0); Hemoglobin 13.6 g/dL (13.5-17.5); Lymphocytes # (auto) 0.7 10 ^3/uL (0.4-5.4); Lymphocytes % (auto) 9.3 % (10.0-50.0); Mean Corpuscular Hemoglobin 32.7 pg (28.0-32.0); Mean Corpuscular Hgb Conc. 34.3 g/dL (32.0-36.0); Mean Corpuscular Volume 95.3 fL (80.0-100.0); Monocytes # (auto) 0.2 10 ^3/uL (0-1.3); Monocytes % (auto) 2.1 % (0.0-12.0); Neutrophils # (auto) 6.6 10 ^3/uL (1.6-8.6); Neutrophils % (auto) 88.4 % (37.0-80.0); Red Blood Cells 4.15 10^6/uL (4.5-5.90); Red Cell Distribution Width 12.8 % (11.8-14.3); White Blood Cell 7.4 10^3/uL (4.4-10.8)
[2023-09-16 07:07] LABS: Alanine Aminotransferase 15 U/L (7-40); Alkaline Phosphatase 118 U/L (46-116); Anion Gap 6 (5-15); BUN/Creatinine Ratio 14.3 (10.0-20.0); Blood Urea Nitrogen 10 mg/dL (9-23); Carbon Dioxide 24 mmol/L (20-30); Chloride 109 mmol/L (98-107); Glucose 143 mg/dL (74-106); Potassium 4.1 mmol/L (3.5-5.1); Sodium 139 mmol/L (136-145)
[2023-09-16 07:08] LABS: Aspartate Aminotransferase 8 U/L (13-40); Total Protein 5.9 g/dL (5.7-8.2)
[2023-09-16 07:26] LABS: Bilirubin, Total 0.3 mg/dL (0.2-1.0)
[2023-09-16 08:16] LABS: Amphetamine Screen, Urine Neg (NEGATIVE); Barbiturate Scree,Urine Neg (NEGATIVE); Benzodiazephine Screen, Urine Neg (NEGATIVE); Cannabinoid Screen, Urine Neg (NEGATIVE); Cocaine Screen, Urine Neg (NEGATIVE); Opiate Scree,Urine Neg (NEGATIVE); Phencyclidine Screen, Urine Neg (NEGATIVE)
[2023-09-16] MEDS: PANTOPRAZOLE 40 MG/10 ML VIAL INJ IV SCH (09:22)
[2023-09-16] MEDS: AZITHROMYCIN 250 MG TAB PO SCH (09:22)
[2023-09-16] MEDS: ASPirin 81 mg TAB PO SCH (09:22)
[2023-09-16] MEDS: DOCUSATE SOD 100 MG CAP PO SCH (09:23)
[2023-09-16 11:27] LABS: Triglycerides 96 mg/dL (< 150)
[2023-09-16 11:28] LABS: LDL Cholesterol 124 mg/dL (< 100)
[2023-09-16] MEDS: ADENOSINE 66 MG in GIVE UN-DILUTED 0 ML IV STA (11:28)
[2023-09-16 11:29] LABS: Cholesterol 175 mg/dL (< 200); HDL Cholesterol 48 mg/dL (40-59)
[2023-09-17] VITALS (15 sets, daily range): BP systolic 105–118; BP diastolic 55–68; PULSE 53–82; RESP 16–20; TEMP 97.7–98.1; O2SAT 94–100
[2023-09-17] MEDS: HYDROcodone-ACET 5/325MG TAB PO PRN (12:02)
[2023-09-18] VITALS (9 sets, daily range): BP systolic 107–126; BP diastolic 61–94; PULSE 47–75; RESP 17–20; TEMP 36.7; O2SAT 94–100
[2023-09-18] MEDS: ACETAMINOPHEN 325 MG TAB PO PRN (03:43)
[2023-09-18 09:23] LABS: Hepatitis B Surface Antigen Negative (Negative)
[2023-09-18 09:45] LABS: Hepatitis C Antibody Negative (Negative)
[2023-09-18] MEDS ORDERED: AZIT500T66 PO (09:46)
== END 2023-09-18 12:42 | disposition home or self-care (01) | DRG 137 ==
LOC: ER 08:18 → OVERFLOW 10:40 → TELE-WESTW 10:46
PROVIDERS: ADMIT Nurse Practitioner Family; ATTEND Family Medicine
DX: J15.69 Pneumonia due to other Gram-negative bacteria (principal); E78.5 Hyperlipidemia, unspecified; J20.9 Acute bronchitis, unspecified; J18.9 Pneumonia, unspecified organism; I10 Essential (primary) hypertension; F17.210 Nicotine dependence, cigarettes, uncomplicated; Z86.73 Personal history of transient ischemic attack (TIA), and cerebral infarction without residual deficits; Z82.49 Family history of ischemic heart disease and other diseases of the circulatory system
CPT/HCPCS: 36415; 71045; 78452; 80048; 80053; 80061; 80307; 83690; 83735; 84484; 85025; 85379; 85610; 86803; 87340; 93005; 93017; 93306; 94640; C9113; G0378; J0153; J2405